=== PATIENT | female | born 1935 | race Caucasian/White ===

== ENCOUNTER 2018-03-19 04:17 | Inpatient (IN) | payer MEDICARE ==
[2018-03-19 04:42] LABS: Bilirubin Negative (Negative); Blood, Urine Negative (Negative); Clarity CLOUDY (Clear); Glucose, Urine (Dipstick) Negative (Negative); Leukocyte Moderate (Negative); Nitrite Negative (Negative); Protein, Urine (Dipstick) Trace mg/dL (Neg-Trace); Urobilinogen 0.2 mg/dL (0.2-1.0); pH, Urine 5.5 (5.0-9.0)
[2018-03-19 04:44] LABS: Bacteria/HPF 1+ HPF (None Seen); Hyaline Casts/LPF 0-3 HYALINE CAST LPF (0-3 Hyaline); Pathc Cast-AUWi Flag 0.43 (0-2.49); RBC/HPF None Seen HPF (0-3); Squamous Epithelial None Seen HPF (0-3); WBC/HPF 21-50 HPF (0-3)
[2018-03-19 04:52] LABS: #Basophils 0.1 thou/uL (0.0-0.2); #Eosinphils 0.4 thou/uL (0.0-0.7); #Lymphocytes 1.9 thou/uL (1.20-3.40); #Monocytes 0.7 thou/uL (0.11-0.59); #Neutrophils 7.3 thou/uL (1.40-6.50); %Basophils 0.5 % (0.0-1.0); %Eosinophils 4.2 % (0.0-10.0); %Lymphocytes 18.6 % (21.0-51.0); %Monocytes 6.9 % (0.0-10.0); %Neutrophils 69.9 % (42.0-75.0); Hemoglobin 10.4 g/dL (12.0-16.0); Mean Corpuscular HGB CONC 32.9 g/dL (32.0-36.0); Mean Corpuscular Hemoglobin 28.7 pg (27.0-31.0); Mean Corpuscular Volume 87.4 fL (78.0-98.0); Mean Platelet Volume 7.7 fL (7.4-10.4); Platelet Count 253 thou/uL (130-400); RBC Distribution Width 11.9 % (11.5-14.5); Red Blood Cell (RBC) Count 3.62 mill/uL (4.20-5.40); White Blood Cell (WBC) Count 10.4 thou/uL (4.8-10.8)
[2018-03-19] MEDS ORDERED: cefTRIAXone\\ROCEPHIN 1 GM VIAL ONE (04:59)
[2018-03-19 05:22] LABS: ALT (SGPT) 12 U/L (8-55); AST (SGOT) 13 U/L (5-34); Albumin 3.2 g/dL (3.4-4.8); Alkaline Phosphatase 56 U/L (40-150); Anion Gap 15 mmol/L (10-20); BUN (Urea Nitrogen) 23 mg/dL (9.8-20.1); Bilirubin, Total 0.3 mg/dL (0.2-1.2); CK (CPK) 28 U/L (29-168); CKMB 0.6 ng/mL (0-6.6); Calc. Creatinine Clearance 0 mL/min (70-130); Calcium 8.2 mg/dL (7.8-10.44); Carbon Dioxide 16 mmol/L (23-31); Chloride 95 mmol/L (98-107); Estimated GFR-MDRD 17; Globulin 2.4 g/dL (2.4-3.5); Glucose 161 mg/dL (83-110); Potassium 5.1 mmol/L (3.5-5.1); Protein, Total 5.6 g/dL (6.0-8.3); Sodium 121 mmol/L (136-145); Troponin I Less than 0.010 ng/mL (< 0.028)
[2018-03-19] MEDS ORDERED: Bisacodyl 5 MG TAB PO PRN ×2 (07:22)
[2018-03-19] MEDS ORDERED: Acetaminophen 325 MG TAB PO PRN (07:22)
[2018-03-19] MEDS ORDERED: Calcium Carbonate 500 MG ChewTAB PO PRN (07:22)
[2018-03-19] MEDS ORDERED: hydrALAZINE 20 MG/ML VIAL SLOW IVP PRN (07:22)
[2018-03-19] MEDS ORDERED: Nitroglycerin 0.4 MG TAB (25 Tab Bottle) SL PRN (07:22)
[2018-03-19] MEDS ORDERED: Ondansetron PF 4 MG/2 ML Vial IVP PRN (07:22)
[2018-03-19] MEDS ORDERED: Senokot S 8.6-50 MG TAB PO PRN ×2 (07:22)
--- NOTE | 2018-03-19 08:02 | RAD ---
SINGLE VIEW OF THE CHEST: COMPARISON: 04/29/2011. HISTORY: Altered mental status and hypotension. FINDINGS: A single view of the chest shows a normal-size cardiomediastinal silhouette with atherosclerotic calc ifications in the aorta. There is no evidence of consolidation, mass, or pleural effusion. IMPRESSION: No evidence of acute cardiopulmonary disease. POS: [facility]
--- NOTE | 2018-03-19 08:07 | CT ---
PRELIMINARY REPORT/[facility]/EMERGENTY AFTER-HOURS PROCEDURE CT Head Without Intravenous Contrast EXAM DATE/TIME: 03/19/2018 4:45 AM CLINICAL HISTORY: 82 years old, female; Alteration of consciousness; Transient alteration of awareness; hypotension. em s dispatched because family could not wake the PT and family thinks PT might have taken too much medi cation. Ems unable to wake PT with sternal rub on scene, PT only became concious once en route, initi ally a&ox2 but now a&ox3. Per ems pt's BP was initially 73/33. PT "feels fine" and denies any pain. TECHNIQUE: Axial computed tomography images of the head/brain without intravenous contrast. COMPARISON: No relevant prior studies available. FINDINGS: Brain: Periventricular white matter areas of decreased density which are likely secondary to chronic ischemia from microvascular change. Diffuse cerebral atrophy. No mass effect or midline shift. No ext ra-axial fluid collection. Ventricles: Ventricular prominence in this patient with diffuse cerebral atrophy. Bones/joints: Normal. No acute fracture. Sinuses: Partial ethmoid and right sphenoid sinusitis. Mastoid air cells: No mastoiditis. Soft tissues: Normal. Vasculature: Arterial calcification. IMPRESSION: 1. No acute intracranial findings. 2. Age-related periventricular white matter changes. Diffuse cerebral atrophy. Thank you for allowing us to participate in the care of your patient. Dictated and Authenticated by: Mayur Pate MD 03/19/2018 4:59 AM Central Time ([place] & [place]) FINAL INTERPRETATION HEAD CT WITHOUT CONTRAST: 03/19/2018 HISTORY: Hypotension. Altered mental status. Alteration of consciousness. COMPARISON: 09/06/2013 FINDINGS: I agree with the preliminary [facility] report, dictated by Dr. Mayur Pate. There is mucosal thickening involving a partially visualized right sphenoid sinus and the posterior r ight ethmoid air cells. No acute osseous abnormality. No intracranial hemorrhage, midline shift, or mass effect. IMPRESSION: No intracranial hemorrhage. No acute findings. POS: [facility]
[2018-03-19] MEDS: Sodium Chloride 0.9% 1,000 ML IV SCH ×2 (08:23→21:37)
[2018-03-19] MEDS: Heparin 5,000 UNITS/ML VIAL SC SCH ×2 (08:24→21:40)
[2018-03-19] MEDS: Famotidine 20 MG TAB PO SCH (08:24)
[2018-03-19 09:07] LABS: Lactic Acid 2.3 mmol/L (0.5-2.2)
[2018-03-19] MEDS ORDERED: Dextrose 5% in Water 1,000 ML IV PRN (13:36)
[2018-03-19] MEDS ORDERED: HumaLOG 300 UNITS/3 ML VIAL SC PRN ×2 (13:36)
[2018-03-19] MEDS ORDERED: Dextrose 50% Abboject 50 ML SYRINGE SLOW IVP PRN (13:36)
[2018-03-19] MEDS ORDERED: guaiFENesin ER 600 MG TAB PO SCH (14:15)
--- NOTE | 2018-03-19 14:20 | HP ---
DATE OF ADMISSION: 03/19/2018 PRIMARY CARE PHYSICIAN: Sarthak Grimm M.D. CHIEF COMPLAINT: Altered mental status. HISTORY OF PRESENT ILLNE: Ms. Reardon is an 82-year-old female with past medical history of hypertensi on and repeated blood infections who presented to the emergency room last night with above-mentioned complaint. History is mainly obtained by the patient's son present at the bedside as the patient aguillon s not remember much about last night. The patient's son response that his father is responsible for Ms. Reardon. She does not like his cooki ng and does not eat much. She would just sleep in the chair all day long and would perk up whenever the son goes there and takes her out to eat. She will eat a hamburger, but would not eat the cooked home meals. Nevertheless, her found out that Ms. Reardon was asleep most of the day yesterday and towards the end of the day, it was difficult to wake her up. EMS was called and the patient was found to be hypotensive with a blood pressure of 73/33 per EMS. She was brought to the emergency christiano and by the time of presentation, she was more awake. Her blood pressure on presentation to the ER was 87/55. Initial workup included a CT scan of the brain which was negative for any acute changes. Her EKG showed heart rate at 58 without any specific arrhythmias. Chest x-ray was unremarkable. Tonio holden was found to have urinalysis consistent with early urinary tract infection and received normal sali ne and Rocephin in the Emergency Room with improvement in her symptoms. She is being admitted for further workup of low blood pressure, urinary tract infection and altered m ental status. At the time of my evaluation, the patient is sitting at the side of the bed and workin g with the physical therapist and back to being her baseline, awake, alert, oriented x3. The patient's son reports that usually the patient's blood pressure is difficult to control and has b een managed by her primary care physician, Dr. Grimm and drill operator, Dr. Win. She is on a "bunch of blood pressure medications according to the son." He reports that normally her blood pressure is better than his in the 120s range at home. PAST MEDICAL HISTORY: 1. Hypertension. 2. Recurrent urinary tract infections. 3. Diet controlled diabetes mellitus. 4. History of obstructive sleep apnea. 5. Gastroesophageal reflux disease. PAST SURGICAL HISTORY: 1. Left carotid endarterectomy. 2. Cholecystectomy. 3. Right total knee replacement 4. Appendectomy. ALLERGIES: AMLODIPINE and PENICILLIN. SOCIAL HISTORY: She lives with her . No history of drug, tobacco or alcohol abuse. CODE STATUS: FULL CODE. Discussed with the patient and her son. FAMILY HISTORY: No significant family history of coronary artery disease or stroke. HOME MEDICATIONS: Colace 100 mg p.o. b.i.d. p.r.n., Aldactone 25 mg daily, Celexa 20 mg p.o. b.i.d., valsartan 320 mg daily, metformin 850 mg daily, hydroxyzine 20 mg at bedtime, aspirin 325 mg daily, Neurontin 100 mg p.o. b.i.d., Xanax 0.5 mg q.i.d., diltiazem 240 mg daily, isosorbide mononitrate 60 mg p.o. b.i.d., Catapres 0.2 mg p.o. t.i.d., and hydralazine 100 mg p.o. t.i.d. REVIEW OF SYSTEMS: The following complete review of systems was negative, unless otherwise mentioned in the HPI or below: Constitutional: Weight loss or gain, ability to conduct usual activities. Ski n: Rash, itching. Eyes: Double vision, pain. ENT/Mouth: Nose bleeding, neck stiffness, pain, ten derness. Cardiovascular: Palpitations, dyspnea on exertion, orthopnea. Respiratory: Shortness of breath, wheezing, cough, hemoptysis, fever or night sweats. Gastrointestinal: Poor appetite, abdomi nal pain, heartburn, nausea, vomiting, constipation, or diarrhea. Genitourinary: Urgency, frequency , dysuria, nocturia. Musculoskeletal: Pain, swelling. Neurologic/Psychiatric: Anxiety, depression . Allergy/Immunologic: Skin rash, bleeding tendency. A 12-point review of systems was done and it is negative except for those mentioned in the history an d physical. LABORATORY DATA: CBC shows WBCs 10.4, hemoglobin 10.4, platelet count of 253. Baseline hemoglobin a round 13, but that was 2 years ago. Serum chemistry shows sodium 121, chloride 95, bicarbonate 16, B UN 23, creatinine 2.66 with baseline creatinine 2 years ago around 1.13, lactic acid 2.6 with repeat lactic acid 2.3. Cardiac enzymes within normal limit. BNP normal. Liver enzymes normal. Urinalysi s shows multiple WBCs, +1 bacteria, moderate leukocyte esterase. PHYSICAL EXAMINATION: VITAL SIGNS: Most recent vital signs, temperature 95.7, heart rate 57-68, respirations 20, saturatin g 94-92% on room air, blood pressure 119/56. GENERAL: No acute distress, awake, alert, oriented x3, sitting at the side of the bed and somewhat s low. Son is at bedside. HEENT: Mucous membranes are slightly dry. No oropharyngeal exudate or erythema. Head is normocepha lic, atraumatic. Pupils equal, reactive to light and accommodation. Extraocular movement intact. NECK: Supple without any lymphadenopathy, JVD or bruit. CHEST: Clear to auscultation without any wheezing, rales or rhonchi. CARDIOVASCULAR: Rate and rhythm is regular without any murmur, rubs or gallops. ABDOMEN: Soft, nontender, nondistended with positive bowel sounds. EXTREMITIES: Free of any cyanosis, clubbing, or edema. NEUROLOGIC: Nonfocal. SKIN: Free of any rashes or bruises. I feel warm and dry to touch. PSYCHIATRIC: Normal affect. IMPRESSION AND PLAN: 1. Hypotension. Likely due to polypharmacy. By my count, the patient is on 6 different blood press ure medications. She also has noted poor oral intake as she does not like her 's cooking and will eat only if taken out. According to the son, she does drink a lot of water, but she clinically appears dry. At this time, she will be resuscitated with IV fluids and we will hold her antihyperten sives and introduced them slowly if her blood pressure starts to creep up. She also has evidence of urinary tract infection, so sepsis with septic shock can also not be ruled out. She will be on empir ic IV antibiotics. Urine culture and blood cultures will be sent and we will follow the results. 2. Urinary tract infection. 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 She has received Rocephin in the emergency room and without inci dence, however. Culture results will be followed. 3. Acute renal insufficiency, likely due to prerenal dehydration. We will avoid any nephrotoxic med ications including the diuretics and resuscitate her gently with IV fluids. 4. Hyponatremia, hypochloremic most likely once again due to poor p.o. intake. We will resuscitate her with normal saline. Her BNP is normal so hypervolemia is not suspected. She has no history of c ardiac or liver diseases or renal disease per se. 5. Altered mental status, likely toxic metabolic encephalopathy with a combination of hypotension an d urinary tract infection. It has since resolved. We do not suspect stroke or seizures at this time . 6. Deconditioning. The patient will be evaluated by OT and PT. We will arrange home health if nece ssary. 7. History of hypertension, currently blood pressure on the marginal lower side. We will hold her a ntihypertensives for now. 8. Noninsulin dependent diabetes mellitus. We will hold the metformin in the light of acute renal i nsufficiency and put her on insulin sliding scale. 9. Deep venous thrombosis and gastrointestinal prophylaxis and p.r.n. medication orders and continue supportive care. DISPOSITION: Ms. Reardon is currently being admitted in observation status for low blood pressure with urinary tract infection. Sepsis will be ruled out. Currently, she is hemodynamically stable. Danielle mated length of stay at this time is less than 2 midnights. Further management will depend upon her clinical course.
[2018-03-19] MEDS: MEROPENEM 1 GM/50 ML 1 GM in Premix Bag 1 BAG IVPB SCH (15:27)
[2018-03-19] MEDS: guaiFENesin ER 600 MG TAB PO SCH (21:40)
[2018-03-20] MEDS: MEROPENEM 1 GM/50 ML 1 GM in Premix Bag 1 BAG IVPB SCH ×4 (00:44→23:09)
[2018-03-20] MEDS: cloNIDine 0.1 MG TAB PO PRN ×2 (00:44→05:37)
[2018-03-20 04:43] LABS: #Eosinphils 0.7 thou/uL (0.0-0.7); #Lymphocytes 1.4 thou/uL (1.20-3.40); #Monocytes 0.8 thou/uL (0.11-0.59); #Neutrophils 3.8 thou/uL (1.40-6.50); %Basophils 0.7 % (0.0-1.0); %Eosinophils 9.8 % (0.0-10.0); %Lymphocytes 20.9 % (21.0-51.0); %Monocytes 12.2 % (0.0-10.0); %Neutrophils 56.4 % (42.0-75.0); Hemoglobin 10.6 g/dL (12.0-16.0); Mean Corpuscular HGB CONC 32.7 g/dL (32.0-36.0); Mean Corpuscular Hemoglobin 28.8 pg (27.0-31.0); Mean Corpuscular Volume 87.9 fL (78.0-98.0); Mean Platelet Volume 7.6 fL (7.4-10.4); Platelet Count 285 thou/uL (130-400); RBC Distribution Width 11.7 % (11.5-14.5); Red Blood Cell (RBC) Count 3.68 mill/uL (4.20-5.40); White Blood Cell (WBC) Count 6.8 thou/uL (4.8-10.8)
[2018-03-20 04:56] LABS: Anion Gap 13 mmol/L (10-20); BUN (Urea Nitrogen) 23 mg/dL (9.8-20.1); Calc. Creatinine Clearance 40 mL/min (70-130); Carbon Dioxide 15 mmol/L (23-31); Chloride 107 mmol/L (98-107); Estimated GFR-MDRD 36; Glucose 106 mg/dL (83-110); Potassium 4.7 mmol/L (3.5-5.1); Sodium 130 mmol/L (136-145)
[2018-03-20] MEDS ORDERED: hydrOXYzine 10 MG TAB PO PRN (07:31)
[2018-03-20] MEDS ORDERED: Docusate 100 MG CAP PO PRN (07:31)
[2018-03-20] MEDS ORDERED: Haloperidol Lactate 5 MG/ML VIAL IM SCH (08:45)
[2018-03-20] MEDS ORDERED: Non-Formulary Item 1 EACH (Valsartan [Diovan] 320 MG) PO SCH (09:00)
[2018-03-20] MEDS ORDERED: cloNIDine 0.1 MG TAB PO SCH (09:00)
[2018-03-20] MEDS ORDERED: DILTIAZEM HCL 240 MG PO SCH (09:00)
[2018-03-20] MEDS ORDERED: Non-Formulary Item 1 EACH (Hydralazine Hcl [Hydralazine Hcl] 100 MG) PO SCH (09:00)
[2018-03-20] MEDS: ALPRAZolam 0.5 MG TAB PO SCH ×4 (09:01→20:38)
[2018-03-20] MEDS: hydrALAZINE 25 MG TAB PO SCH ×3 (09:05→20:41)
[2018-03-20] MEDS: Gabapentin 100 MG CAP PO SCH ×2 (10:20→20:39)
[2018-03-20] MEDS: Heparin 5,000 UNITS/ML VIAL SC SCH ×2 (10:21→20:40)
[2018-03-20] MEDS: Aspirin 325 MG TAB PO SCH (10:39)
[2018-03-20] MEDS: guaiFENesin ER 600 MG TAB PO SCH ×2 (10:40→20:40)
[2018-03-20] MEDS: Citalopram 20 MG TAB PO SCH ×2 (10:40→20:39)
[2018-03-20] MEDS: cloNIDine 0.2 MG TAB PO SCH ×3 (10:40→20:39)
[2018-03-20] MEDS: Famotidine 20 MG TAB PO SCH (10:40)
--- NOTE | 2018-03-20 10:57 | PDOC.PN ---
- Subjective Encounter Start Date: 03/20/18 Encounter Start Time: 10:56 Subjective: pt very confused & refusing meds/BP checks.Granddaughter at bedside & care -: discussed.also discussed w RN and son on phone -: No IV access since this morning w multiple failed attempt Family reports that she gets agitated and confused every time she is in hospital - Objective Resuscitation Status: Resuscitation Status FULL:Full Resuscitation MAR Reviewed: Yes Vital Signs & Weight: Vital Signs (12 hours) Temp Pulse Resp BP BP Pulse Ox 03/20/18 10:40 219/88 H 03/20/18 10:36 85 18 219/88 H 03/20/18 09:05 89 03/20/18 07:23 98.6 F 89 18 98 03/20/18 06:15 175/89 H 03/20/18 05:37 179/80 H 03/20/18 04:00 98.1 F 93 16 187/79 H 96 03/20/18 00:44 179/80 H 03/20/18 00:00 97.9 F 73 18 179/80 H 95 Weight Weight 189 lb I&O: 03/19/18 03/20/18 03/21/18 06:59 06:59 05:59 Intake Total 1783 Output Total 400 Balance 1383 Result Diagrams: 03/20/18 03:59 03/20/18 03:59 Additional Labs: Accuchecks 03/20/18 03/20/18 03/19/18 10:44 05:15 20:45 POC Glucose 126 H 96 100 03/19/18 03/19/18 17:06 11:26 POC Glucose 106 114 H Phys Exam - Physical Examination Constitutional: NAD anxious HEENT: moist MMs, sclera anicteric, oral pharynx no lesions Neck: no nodes, no JVD, supple, full ROM Respiratory: no wheezing, no rales, no rhonchi, clear to auscultation bilateral Cardiovascular: RRR, no significant murmur Gastrointestinal: soft, non-tender, no distention, positive bowel sounds Musculoskeletal: no edema, pulses present Neurological: moves all 4 limbs Deviation from normal: confused and agitated Skin: no rash Dx/Plan (1) Delirium Code(s): R41.0 - DISORIENTATION, UNSPECIFIED Status: Acute Comment: [facility] induced delirium with Toxic metabolic encephalopathy (2) UTI (urinary tract infection) Status: Acute (3) Uncontrolled hypertension Code(s): I10 - ESSENTIAL (PRIMARY) HYPERTENSION Status: Acute (4) Hyponatremia Code(s): E87.1 - HYPO-OSMOLALITY AND HYPONATREMIA Status: Acute Comment: improving. (5) SHANAE (acute kidney injury) Code(s): N17.9 - ACUTE KIDNEY FAILURE, UNSPECIFIED Status: Acute Comment: improving - Plan plan discussed w/ family, continue antibiotics, out of bed/ambulate, DVT proph w /heparin, DVT proph w/SCDs Discussed w family .will start prn Geodon so pt can be treated -: will get PICC as multiple attempts w Peripheral failed. -: restart meropenam for UTI.follow Cx.Blood Cx1/2 GPC-likley contaminated -: slow down IVF as sodium is better.No IVF since this AM as no access -: Not safe for DC untill HD stable.BP dangerously high * .Will change to Inpt. * AM labs * restart home meds with exception of Diuretic and ARB d/t SHANAE * * Time spent in care coordination 33 minutes Review of Systems - Review of Systems Other: can not be obtained due to agitation - Medications/Allergies Allergies/Adverse Reactions: Allergies Allergy/AdvReac Type Severity Reaction Status Date / Time amlodipine Allergy Verified 03/19/18 09:46 Penicillins Allergy Verified 03/19/18 09:46 pravastatin Allergy Verified 03/19/18 09:46 Medications: Current Medications Acetaminophen (Tylenol) 650 mg PO Q4H PRN PRN Reason: Headache/Fever/Mild Pain (1-3) Alprazolam (Xanax) 0.5 mg PO QID [facility] Last Admin: 03/20/18 09:01 Dose: 0.5 mg Aspirin (Aspirin) 325 mg PO DAILY [facility] Last Admin: 03/20/18 10:39 Dose: 325 mg Bisacodyl (Dulcolax) 10 mg PO DAILYPRN PRN PRN Reason: Constipation Calcium Carbonate (Tums) 1,000 mg PO Q4H PRN PRN Reason: Heartburn or Indigestion Citalopram Hydrobromide (Celexa) 20 mg PO BID [facility] Last Admin: 03/20/18 10:40 Dose: 20 mg Clonidine (Catapres) 0.1 mg PO Q4H PRN PRN Reason: SBP > _160___ Last Admin: 03/20/18 05:37 Dose: 0.1 mg Clonidine (Catapres) 0.2 mg PO TID [facility] Last Admin: 03/20/18 10:40 Dose: 0.2 mg Dextrose/Water (Dextrose 50%) 25 gm SLOW IVP PRN PRN PRN Reason: Hypoglycemia Diltiazem HCl (Cardizem Cd) 240 mg PO DAILY [facility] Last Admin: 03/20/18 10:20 Dose: 240 mg Docusate Sodium (Colace) 100 mg PO BID PRN PRN Reason: Constipation Famotidine (Pepcid) 20 mg PO DAILY [facility] Last Admin: 03/20/18 10:40 Dose: Not Given Gabapentin (Neurontin) 100 mg PO BID [facility] Last Admin: 03/20/18 10:20 Dose: 100 mg Glucagon (Glucagon) 1 mg IM PRN PRN PRN Reason: Hypoglycemia Guaifenesin (Mucinex) 600 mg PO Q12HR [facility] Last Admin: 03/20/18 10:40 Dose: Not Given Heparin Sodium (Porcine) (Heparin) 5,000 units SC BID [facility] Last Admin: 03/20/18 10:21 Dose: Not Given Hydralazine HCl (Apresoline) 10 mg SLOW IVP Q4H PRN PRN Reason: SBP > 180 and HR < 70 Hydralazine HCl (Apresoline) 100 mg PO TID [facility] Last Admin: 03/20/18 09:05 Dose: 100 mg Hydroxyzine HCl (Atarax) 20 mg PO HS PRN PRN Reason: Itching Dextrose/Water (D5w) 1,000 mls @ 0 mls/hr IV .Q0M PRN PRN Reason: Hypoglycemia Meropenem 1 gm/ Device 50 mls @ 100 mls/hr IVPB 0800,1600,2359 [facility] Last Admin: 03/20/18 00:44 Dose: 50 mls Sodium Chloride (Normal Saline 0.9%) 1,000 mls @ 50 mls/hr IV .Q20H [facility] Insulin Human Lispro (Humalog) 0 units SC .MILD SLIDING SCALE PRN PRN Reason: Mild Correctional Scale Insulin Human Lispro (Humalog) 0 units SC .BEDTIME SLIDING SC PRN PRN Reason: Bedtime Correctional Scale Isosorbide Mononitrate (Imdur) 60 mg PO BID [facility] Last Admin: 03/20/18 10:40 Dose: 60 mg Nitroglycerin (Nitrostat) 0.4 mg SL Q5MIN PRN PRN Reason: Chest Pain Ondansetron HCl (Zofran) 4 mg IVP Q6H PRN PRN Reason: Nausea/Vomiting Senna/Docusate Sodium (Senokot S) 2 tab PO BIDPRN PRN PRN Reason: refractory constipation Sodium Chloride (Flush - Normal Saline) 10 ml IVF Q12HR [facility] Sodium Chloride (Flush - Normal Saline) 10 ml IVF PRN PRN PRN Reason: Saline Flush Ziprasidone (Geodon) 10 mg IM Q2H PRN PRN Reason: Agitation
[2018-03-20] MEDS: Ziprasidone 20 MG VIAL IM PRN ×2 (11:36→23:09)
[2018-03-20 12:21] VITALS: BMI 31.4
[2018-03-20] MEDS: Sodium Chloride 0.9% 1,000 ML IV SCH (13:52)
--- NOTE | 2018-03-20 15:54 | SPC ---
ULTRASOUND GUIDED LEFT ARM PICC LINE PLACEMENT: 03/20/18 HISTORY: Patient with sepsis and unable to obtain IV access. After informed consent was obtained, the patient was prepped and draped in the normal sterile fashion . Local anesthesia was obtained with 1% Xylocaine. A small skin incision was made using the #11 scal pel blade. The left basilic vein was punctured with a 22 gauge spinal needle without difficulty. A 0. 025 inch sizing wire was subsequently introduced. Wire was placed at the distal superior vena cava/ri ght atrium junction and catheter was cut to a length of 42 cm. The needle was withdrawn and replaced with the 6 Marshallese peel away sheath. The catheter was introduced without difficulty. Patient tolerated the procedure well. There were no immediate complications. IMPRESSION: Successful ultrasound guided left sided PICC line placement. Catheter tip in the superior vena cava a nd is ready for use. POS: [facility]
[2018-03-20] MEDS ORDERED: Sterile Water 10 ML VIAL FS PRN (22:56)
[2018-03-21] MEDS: Sodium Chloride 0.9% 1,000 ML IV SCH ×2 (01:17→17:00)
[2018-03-21] MEDS: Ziprasidone 20 MG VIAL IM PRN (01:36)
[2018-03-21] MEDS: hydrALAZINE 25 MG TAB PO SCH ×3 (07:50→20:54)
[2018-03-21] MEDS: Citalopram 20 MG TAB PO SCH ×2 (07:51→20:53)
[2018-03-21] MEDS: cloNIDine 0.2 MG TAB PO SCH ×3 (07:51→20:53)
[2018-03-21] MEDS: Aspirin 325 MG TAB PO SCH (07:51)
[2018-03-21] MEDS: ALPRAZolam 0.5 MG TAB PO SCH ×4 (07:51→20:53)
[2018-03-21] MEDS: guaiFENesin ER 600 MG TAB PO SCH ×2 (07:52→20:54)
[2018-03-21] MEDS: Gabapentin 100 MG CAP PO SCH ×2 (07:52→20:53)
[2018-03-21] MEDS: MEROPENEM 1 GM/50 ML 1 GM in Premix Bag 1 BAG IVPB SCH ×3 (07:52→23:12)
[2018-03-21] MEDS: Famotidine 20 MG TAB PO SCH (07:52)
[2018-03-21] MEDS: Heparin 5,000 UNITS/ML VIAL SC SCH ×2 (07:55→20:55)
[2018-03-21] MEDS: Valsartan 80 MG TAB PO SCH (09:03)
--- NOTE | 2018-03-21 11:06 | PDOC.PN ---
- Subjective Encounter Start Date: 03/21/18 Encounter Start Time: 11:04 Subjective: had better night last night.now asleep.care discussed w son at bedside -: no fever/chills/no overnight events.more calm.took meds - Objective Resuscitation Status: Resuscitation Status FULL:Full Resuscitation MAR Reviewed: Yes Vital Signs & Weight: Vital Signs (12 hours) Temp Pulse Resp BP BP Pulse Ox 03/21/18 09:02 83 126/58 L 03/21/18 07:51 91 188/78 H 03/21/18 07:50 91 188/78 H 03/21/18 07:20 98 F 91 18 188/78 H 97 03/21/18 06:16 180/79 H 03/21/18 06:13 75 180/79 H 03/21/18 04:03 97.6 F 76 20 96 Weight Admit Weight 189 lb Weight 190 lb 1.6 oz I&O: 03/20/18 03/21/18 03/22/18 07:59 06:59 06:59 Intake Total Output Total Balance Result Diagrams: 03/20/18 03:59 03/20/18 03:59 Additional Labs: Accuchecks 03/21/18 03/20/18 03/20/18 05:53 20:15 17:04 POC Glucose 122 H 161 H 114 H Microbiology 03/19/18 04:57 Venous blood - Right Hand Blood Culture - Preliminary Specimen has been received and culture in progress. No Growth to date. 03/19/18 04:28 Venous blood - Left Arm Blood Culture - Preliminary Gram Positive Cocci 03/19/18 04:28 Venous blood - Left Arm Blood Culture - Preliminary Coagulase Neg Staphylococcus 03/19/18 04:27 Urine Straight Catheter Urine Culture - Preliminary Escherichia coli 03/19/18 04:27 Urine Straight Catheter Urine Culture - Preliminary Laboratory Tests 03/19/18 03/19/18 03/19/18 04:28 04:28 04:57 Sodium 121 L Lactic Acid 2.6 H Troponin I Less than 0.010 03/19/18 03/20/18 08:39 03:59 Sodium 130 L Lactic Acid 2.3 H Troponin I Phys Exam - Physical Examination Constitutional: NAD HEENT: sclera anicteric, oral pharynx no lesions Neck: no JVD Respiratory: no wheezing, no rales, no rhonchi, clear to auscultation bilateral Cardiovascular: RRR, no significant murmur Gastrointestinal: soft, non-tender, no distention, positive bowel sounds Musculoskeletal: no edema, pulses present Neurological: non-focal, normal sensation, moves all 4 limbs Dx/Plan (1) Delirium Code(s): R41.0 - DISORIENTATION, UNSPECIFIED Status: Acute Comment: [facility] induced delirium with Toxic metabolic encephalopathy.improving (2) UTI (urinary tract infection) Status: Acute (3) Uncontrolled hypertension Code(s): I10 - ESSENTIAL (PRIMARY) HYPERTENSION Status: Acute (4) Hyponatremia Code(s): E87.1 - HYPO-OSMOLALITY AND HYPONATREMIA Status: Acute Comment: improving. (5) SHANAE (acute kidney injury) Code(s): N17.9 - ACUTE KIDNEY FAILURE, UNSPECIFIED Status: Acute Comment: improving - Plan plan discussed w/ family, continue antibiotics, PT/OT, respiratory therapy, incentive spirometry, out of bed/ambulate, DVT proph w/SCDs cont meropenam.follow Cx. Picc done d/t lost IV access -: BP still uncontrolled.cont meds. restart Valsartan -: BMP in am .Hd stable -: Ermias MIRANDA in next 24 hrs once sensitivity avialable w HH * . Review of Systems - Review of Systems Other: limted due to delirium and pt being asleep.Family do not want me to wake her up - Medications/Allergies Allergies/Adverse Reactions: Allergies Allergy/AdvReac Type Severity Reaction Status Date / Time amlodipine Allergy Verified 03/19/18 09:46 Penicillins Allergy Verified 03/19/18 09:46 pravastatin Allergy Verified 03/19/18 09:46 Medications: Current Medications Acetaminophen (Tylenol) 650 mg PO Q4H PRN PRN Reason: Headache/Fever/Mild Pain (1-3) Alprazolam (Xanax) 0.5 mg PO QID [facility] Last Admin: 03/21/18 07:51 Dose: 0.5 mg Aspirin (Aspirin) 325 mg PO DAILY [facility] Last Admin: 03/21/18 07:51 Dose: 325 mg Bisacodyl (Dulcolax) 10 mg PO DAILYPRN PRN PRN Reason: Constipation Calcium Carbonate (Tums) 1,000 mg PO Q4H PRN PRN Reason: Heartburn or Indigestion Citalopram Hydrobromide (Celexa) 20 mg PO BID [facility] Last Admin: 03/21/18 07:51 Dose: 20 mg Clonidine (Catapres) 0.1 mg PO Q4H PRN PRN Reason: SBP > _160___ Last Admin: 03/20/18 05:37 Dose: 0.1 mg Clonidine (Catapres) 0.2 mg PO TID [facility] Last Admin: 03/21/18 07:51 Dose: 0.2 mg Dextrose/Water (Dextrose 50%) 25 gm SLOW IVP PRN PRN PRN Reason: Hypoglycemia Diltiazem HCl (Cardizem Cd) 240 mg PO DAILY [facility] Last Admin: 03/21/18 07:51 Dose: 240 mg Docusate Sodium (Colace) 100 mg PO BID PRN PRN Reason: Constipation Famotidine (Pepcid) 20 mg PO DAILY [facility] Last Admin: 03/21/18 07:52 Dose: 20 mg Gabapentin (Neurontin) 100 mg PO BID [facility] Last Admin: 03/21/18 07:52 Dose: 100 mg Glucagon (Glucagon) 1 mg IM PRN PRN PRN Reason: Hypoglycemia Guaifenesin (Mucinex) 600 mg PO Q12HR [facility] Last Admin: 03/21/18 07:52 Dose: 600 mg Heparin Sodium (Porcine) (Heparin) 5,000 units SC BID [facility] Last Admin: 03/21/18 07:55 Dose: Not Given Hydralazine HCl (Apresoline) 10 mg SLOW IVP Q4H PRN PRN Reason: SBP > 180 and HR < 70 Last Admin: 03/21/18 06:13 Dose: 10 mg Hydralazine HCl (Apresoline) 100 mg PO TID [facility] Last Admin: 03/21/18 07:50 Dose: 100 mg Hydroxyzine HCl (Atarax) 20 mg PO HS PRN PRN Reason: Itching Dextrose/Water (D5w) 1,000 mls @ 0 mls/hr IV .Q0M PRN PRN Reason: Hypoglycemia Meropenem 1 gm/ Device 50 mls @ 100 mls/hr IVPB [id number] [facility] Last Admin: 03/21/18 07:52 Dose: 50 mls Sodium Chloride (Normal Saline 0.9%) 1,000 mls @ 50 mls/hr IV .Q20H [facility] Last Admin: 03/21/18 01:17 [employer] Dose: 1,000 mls Insulin Human Lispro (Humalog) 0 units SC .MILD SLIDING SCALE PRN PRN Reason: Mild Correctional Scale Insulin Human Lispro (Humalog) 0 units SC .BEDTIME SLIDING SC PRN PRN Reason: Bedtime Correctional Scale Isosorbide Mononitrate (Imdur) 60 mg PO BID [facility] Last Admin: 03/21/18 07:52 Dose: 60 mg Nitroglycerin (Nitrostat) 0.4 mg SL Q5MIN PRN PRN Reason: Chest Pain Ondansetron HCl (Zofran) 4 mg IVP Q6H PRN PRN Reason: Nausea/Vomiting Senna/Docusate Sodium (Senokot S) 2 tab PO BIDPRN PRN PRN Reason: refractory constipation Sodium Chloride (Flush - Normal Saline) 10 ml IVF Q12HR [facility] Last Admin: 03/21/18 07:53 Dose: Not Given Sodium Chloride (Flush - Normal Saline) 10 ml IVF PRN PRN PRN Reason: Saline Flush Sterile Water (Water For Injection) 0 ml FS Q2H PRN PRN Reason: FOR GEODON RECONSTITUTION Valsartan (Diovan) 320 mg PO DAILY [facility] Last Admin: 03/21/18 09:03 Dose: 320 mg Ziprasidone (Geodon) 10 mg IM Q2H PRN PRN Reason: Agitation Last Admin: 03/21/18 01:36 CDT Dose: 10 mg
[2018-03-22] MEDS: Ziprasidone 20 MG VIAL IM PRN ×2 (02:18→04:18)
[2018-03-22] MEDS ORDERED: Lorazepam 2 MG/ML VIAL SLOW IVP SCH (02:45)
[2018-03-22] MEDS: hydrALAZINE 25 MG TAB PO SCH ×2 (08:06→14:10)
[2018-03-22] MEDS: Aspirin 325 MG TAB PO SCH (08:06)
[2018-03-22] MEDS: cloNIDine 0.2 MG TAB PO SCH ×2 (08:06→14:11)
[2018-03-22] MEDS: Citalopram 20 MG TAB PO SCH (08:06)
[2018-03-22] MEDS: ALPRAZolam 0.5 MG TAB PO SCH ×2 (08:06→12:03)
[2018-03-22] MEDS: guaiFENesin ER 600 MG TAB PO SCH (08:06)
[2018-03-22] MEDS: Gabapentin 100 MG CAP PO SCH (08:06)
[2018-03-22] MEDS: Heparin 5,000 UNITS/ML VIAL SC SCH (08:07)
[2018-03-22] MEDS: Valsartan 80 MG TAB PO SCH (08:08)
[2018-03-22] MEDS: Famotidine 20 MG TAB PO SCH (08:23)
[2018-03-22] MEDS ORDERED: Spironolactone 25 MG TAB PO SCH (09:00)
[2018-03-22 09:02] LABS: Anion Gap 11 mmol/L (10-20); BUN (Urea Nitrogen) 13 mg/dL (9.8-20.1); Calc. Creatinine Clearance 49 mL/min (70-130); Calcium 9.1 mg/dL (7.8-10.44); Carbon Dioxide 21 mmol/L (23-31); Chloride 107 mmol/L (98-107); Estimated GFR-MDRD 48; Glucose 114 mg/dL (83-110); Sodium 135 mmol/L (136-145)
[2018-03-22] MEDS: MEROPENEM 1 GM/50 ML 1 GM in Premix Bag 1 BAG IVPB SCH ×2 (10:23→14:04)
--- NOTE | 2018-03-22 14:18 | DIS ---
DATE OF ADMISSION: 03/19/2018 DATE OF DISCHARGE: 03/22/2018 CONDITION AT THE TIME OF DISCHARGE: Stable and improved. DISCHARGE DISPOSITION: Home with home health. DISCHARGE MEDICATIONS: New medications; nitrofurantoin 100 mg p.o. b.i.d. for 7 days and Florastor 2 50 mg p.o. daily for 10 more days. Resume home medications as follows: Aldactone 25 mg daily, Celex a 20 mg p.o. b.i.d., Diovan 320 mg daily, metformin 850 daily, aspirin 325 daily, Neurontin 100 b.i.d ., Xanax 0.5 q.i.d. p.r.n., diltiazem 240 daily, isosorbide mononitrate 60 p.o. b.i.d., clonidine 0.2 t.i.d., hydralazine 100 t.i.d. PRIMARY CARE PHYSICIAN: Sarthak Grimm M.D. PRIMARY UNDERWRITING CLERK: Cinthia Win M.D. DISCHARGE DIAGNOSES: 1. Altered mental status, likely toxic metabolic encephalopathy. 2. Urinary tract infection. 3. Uncontrolled labile hypertension. 4. Hyponatremia, improved. 5. Acute renal insufficiency, improved. PROCEDURES DONE IN THE HOSPITAL: 1. CT scan of the brain upon presentation, which is negative for any acute changes. 2. PICC line placement as the patient has lost IV access. New IV access could not be established be cause of agitation, delirium, and poor venous structure. HISTORY OF PRESENT ILLNESS: Ms. Reardon is a pleasant 82-year-old female with history of uncontrolled labile hypertension who was brought in by her son for complaints of altered mental status and hypoten donavan. A CT scan done in the emergency room was unremarkable. EKG was without any specific arrhythmi as. The patient was noticed to be on multiple high-dose antihypertensives with her history of diffic ult to control blood pressure. On presentation, her blood pressure was 87/55. Lactic acid was 2.6. Urinalysis showed multiple wbc's, bacteria, and leukocyte esterase. Otherwise, her electrolytes wer e unremarkable. Please see admission history and physical for further detail. She was started on em piric antibiotics and fluid in the beginning and antihypertensives were held. HOSPITAL COURSE: The patient's hospital course was eventful in the terms that she had waxing and wan ing mental status symptoms. She did better when her family members were in the room, but in the midd le of the night, she would get agitated, requiring some Geodon. Her blood pressure was also difficul t to manage, but eventually, she was put back on all of her home medications as the blood pressure st arted to creep up. As of this morning, she is back to her baseline and at the insistence of her son, she will be dischar ged as I believe that she will do much better in the familiar surroundings. Home health has been arr anged for the patient. Her urine culture results showed E. coli which was resistant to quinolones, b ut otherwise pansensitive. She was treated with IV meropenem in the hospital and it was changed to n itrofurantoin for discharge. She will follow with primary care physician in 7-10 days for followup. Discharge planning was discussed with the patient's family who verbalized understanding. PICC line w ill be removed prior to discharge. She was seen and examined prior to discharge. PHYSICAL EXAMINATION: VITALS: Most recent vital signs, temperature 97.9, pulse of 82, respirations 18, saturating 92-93% o n room air, blood pressure 119/68. GENERAL: No acute distress. Awake, alert, oriented to self and place. CHEST: Clear to auscultation bilaterally. Rate and rhythm is regular. Total time spent in the discharge, 32 minutes.
[2018-03-22 15:19] VITALS: BP 122/62; TEMP 97.7
--- NOTE | 2018-03-22 15:23 | PQF ---
DATE: 03-22-18 ATTN: DR. CHELE NEVES Please exercise your independent, professional judgment in responding to the clarification form. Clinical indicators are provided on the bottom of this form for your review Please check appropriate box(s) to clarify if the following diagnosis has been ruled in or ruled out: SEPSIS [ ] Ruled in diagnosis [ ] Continue to treat [ ] Resolved [ ] Ruled out diagnosis [ X] Other diagnosis infection without sepsis [ ] Unable to determine In addition, please specify: Present on Admission (POA): [ ] Yes [X ] No [ ] Unable to determine For continuity of documentation, please document condition throughout progress notes and discharge summary. Thank You. CLINICAL INDICATORS - SIGNS / SYMPTOMS / LABS ER DX: UTI, AMS, DEHYDRATION ER: LETHARGIC, BP: 87/55, 91/40, 88/37 H&P: HYPOTENSION, LIKELY DUE TO POLYPHARMACY. SHE ALSO HAS EVIDENCE OF UTI, SO SEPSIS WITH SEPTIC SHOCK CAN ALSO NOT BE RULED OUT. SHE WILL BE ON EMPIRIC IV ANTIBIOTICS. UTI. SEPSIS WILL BE RULED OUT. LACTIC ACID: 03-19-18: 2.6, 2.3 RISK FACTORS: H&P: HYPOTENSION, UTI, ACUTE RENAL INSUFF, LIKELY DUE TO PRERENAL DEHYDRATION, AMS , LIKELY TOXIC METABOLIC ENCEPHALOPATHY, DECONDITIONING TREATMENTS: H&P: HYPOTENSION, LIKELY DUE TO POLYPHARMACY. SHE ALSO HAS EVIDENCE OF UTI, SO SEPSIS WITH SEPTIC SHOCK CAN ALSO NOT BE RULED OUT. SHE WILL BE ON EMPIRIC IV ANTIBIOTICS. MAR: 03-19-18: MERREM (This form is maintained as a part of the permanent medical record) 2014 [employer]. All Rights Reserved [email or web address] Office: [phone] [facility]USA
[2018-03-24] MEDS ORDERED: Heparin 1,000 UNITS/ML VIAL ONE (17:53)
== END 2018-03-22 15:31 | disposition home health service (06) | DRG 682 ==
LOC: ERS 04:17 → 2NO 07:44 → OBSVTOIN 03-20 10:41 → T4-A 03-21 15:55
PROVIDERS: ADMIT Internal Medicine; ATTEND Internal Medicine
PROC: 02HV33Z Insertion of Infusion Device into Superior Vena Cava, Percutaneous Approach (ICD-10-PCS; principal; 2018-03-20)
DX: N17.9 Acute kidney failure, unspecified (principal); G92 Toxic encephalopathy; N39.0 Urinary tract infection, site not specified; E87.1 Hypo-osmolality and hyponatremia; I95.2 Hypotension due to drugs; T46.5X5A Adverse effect of other antihypertensive drugs, initial encounter; I10 Essential (primary) hypertension; E86.0 Dehydration; E11.9 Type 2 diabetes mellitus without complications; B96.20 Unspecified Escherichia coli [E. coli] as the cause of diseases classified elsewhere; Z16.23 Resistance to quinolones and fluoroquinolones; G47.33 Obstructive sleep apnea (adult) (pediatric); K21.9 Gastro-esophageal reflux disease without esophagitis; Z88.0 Allergy status to penicillin; Z88.8 Allergy status to other drugs, medicaments and biological substances; Z79.899 Other long term (current) drug therapy
CPT/HCPCS: 36415; 36416; 36569; 51701; 70450; 71045; 80048; 80053; 81003; 81015; 82553; 83605; 83880; 84484; 85025; 87040; 87077; 87086; 87149; 87186; 93005; 96361; 96365; A4216; A4353; C1751; G8978-GP-CL; G8979-GP-CJ; G8987-GO-CJ; G8988-GO-CI; J0360; J0696; J1644; J1956; J2060; J2185; J3486